=== PATIENT | male | born 1990 | race Caucasian/White ===

== ENCOUNTER 2016-11-08 09:28 | Emergency (ER) | payer OTHER ==
[2016-11-08 09:40] VITALS: RESP 16
--- NOTE | 2016-11-08 09:47 | EDPHY ---
H & P Stated Complaint: payton intermittent last ffew days(hasn't tried any otc meds) HPI/ROS: CHIEF COMPLAINT: Headache, vision changes HISTORY OF PRESENT ILLNESS: The patient is a healthy 26 y/o male arriving with his friend complaining of now resolved vision changes on Monday, 2 days ago, and a headache onset yesterday. While walking around the [employer] on Monday, he developed acute difficulty focusing his vision. He describes a white spot appearing in both eyes and difficulty seeing. This lasted for at least 5 minutes and was not associated with lightning flashes, headache, or noticeable difficulty reading. After sitting down for somewhere between 5-20 minutes, his vision completely returned to normal and he felt okay for the rest of the day. He woke up Monday with a dull right parietal headache that lasted throughout the day. This morning the headache returned so he went to urgent care for evaluation and was referred here. He has not taken anything for his headache and reports it has improved to a 4/10 in severity. He's had no further change in his vision or other neurologic symptoms. He denies fever, photophobia, phonophobia, dizziness, neck pain, vomiting, weakness, paresthesias, balance issues, confusion, chest pain, abdominal pain, dyspnea, recent illness, recent trauma. He does mention some mild mid back soreness. He has no history of migraines or headaches. He is eating and drinking normally. REVIEW OF SYSTEMS: A ten point review of systems was performed and is negative with the exception of the items mentioned in the HPI. Past medical history: Denies Past surgical history: Left foot surgery to repair fracture Family history: No neurologic diseases Social history: Nonsmoker. Drinks a "fair amount" of alcohol - 1 drink/night. Friend at bedside. Employed as a software database architect. From [place], [place]. No local PCP. General Appearance: Alert. Vital signs reviewed. Blood pressure 126/84. Eyes: Pupils equal and round, no conjunctival injection, no discharge. Anicteric. ENT, Mouth: Mucous membranes are moist, no oropharyngeal erythema or edema. Neck: No lymphadenopathy, supple. Respiratory: Lungs are clear to auscultation; no wheezes, rales, or rhonchi. Cardiovascular: Regular rate and rhythm; no murmur, rub, or gallop. Gastrointestinal: Abdomen is soft and nontender, no masses or organomegaly, bowel sounds normal. Skin: Warm and dry, no rashes on exposed skin, normal color. Back: Nontender to palpation over the thoracolumbar spine. No CVAT. Extremities: No lower extremity edema, no calf tenderness or swelling. Neurological: Alert and oriented. Moving all four extremities easily and equally. Cranial nerves II through XII are examined and are intact (visual acuity not tested). Strength is 5 over 5 bilaterally with testing of all major motor groups. Sensation is intact to light touch over all 4 extremities. Deep tendon reflexes are 2+ in the biceps and knees bilaterally. Gait is normal. [id number] is performed accurately. No truncal ataxia. Psychiatric: Normal affect. - Personal History Current Tetanus/Diphtheria Vaccine: Yes - Medical/Surgical History Hx Asthma: No Hx Chronic Respiratory Disease: No Hx Diabetes: No Hx Cardiac Disease: No Hx Renal Disease: No Hx Cirrhosis: No Hx Alcoholism: No Hx HIV/AIDS: No Hx Splenectomy or Spleen Trauma: No Other PMH: denies - Social History Smoking Status: Never smoked Constitutional: Initial Vital Signs Temperature (C) 36.5 C 11/08/16 09:37 Heart Rate 66 11/08/16 09:37 Respiratory Rate 16 11/08/16 09:37 Blood Pressure 126/84 H 11/08/16 09:37 O2 Sat (%) 98 11/08/16 09:37 O2 Delivery Mode Room Air Allergies/Adverse Reactions: amoxicillin Allergy (Verified 11/08/16 09:36) azithromycin Allergy (Verified 11/08/16 09:37) cefaclor [From Ceclor] Allergy (Verified 11/08/16 09:37) Home Medications: Medication Instructions Recorded NK [No Known Home Meds] 11/08/16 Medical Decision Making ED Course/Re-evaluation: This is a healthy 26 y/o male who presents with a 36-hour history of a dull right parietal headache and a brief preceding vision change about 48 hours ago that resolved spontaneously. He has no history of migraines. His neurologic exam is completely normal and he has had no further neurologic symptoms since the vision changes. I discussed options for imaging at length with the patient. We mutually decided to avoid CT imaging at this time and treat symptoms for now. He wants to try PO medication. 1 tab PO Excedrin administered. Onset of PAYTON not acute, PAYTON not worse of his life--historical information not suggestive of subarachnoid hemorrhage. No neck pain--doubt vascular thrombosis. No signs/sx of infection--meningitis unlikely. Portions of the early history suggest ocular migraine. His current headache does not have migraine features. Nothing that suggest cluster headache. Likely a tension-type headache. 1135: Reassessed patient. His headache has improved, but not resolved completely after Excedrin. He feels ready to go home. I've advised him to follow up with a PCP and use OTC headache medication as needed for symptoms. Strict return precautions given. He is comfortable with plan for discharge. - Data Points Medications Given: Discontinued Medications Acetaminophen/Aspirin/Caffeine (Excedrin Tablet) 1 each PO EDNOW ONE Stop: 11/08/16 10:15 Last Admin: 11/08/16 10:50 Dose: 1 each Departure - Departure Disposition: Home, Routine, Self-Care Clinical Impression: Headache Qualifiers: Headache type: unspecified Headache chronicity pattern: acute headache Intractability: not intractable Qualified Code(s): R51 - Headache Condition: Good Instructions: Ocular Migraine (ED), General Headache (ED) Additional Instructions: 1. Take [id number] medications such as Excedrin (contains acetaminophen) and ibuprofen as directed on the packaging as needed for headache over the next few days. 2. Increase fluid intake. 3. Follow up with a primary care provider to establish care. You've been referred to Dr. Awan locally. 4. Return to the ED for severe headache, confusion, fever, vision changes, weakness or numbness on one side of your body, difficulty with speech, or other worsening of condition. Adult Pain & Fever Control: We recommend Acetaminophen (Tylenol) and Ibuprofen (Motrin,Advil) for pain and fever control. When fever is high or pain severe, both drugs can be used at the same time, but at different intervals. Please note the time differences. Your dose is: Acetaminophen 650mg every 4 to 6 hours Ibuprofen 600mg every 6-8 hours with food Note: do not take Acetaminophen with Hydrocodone (Vicodin, Lortab) or Oxycodone (Percocet). These medications also contain Acetaminophen. No more than 3000mg of Acetaminophen should be taken in 24 hours (for an adult). Referrals: Myriam Awan MD [[facility] Primary Care Provider] - As per Instructions Report Scribed for: Lillian St Report Scribed by: Zuly Beaver Date of Report: 11/08/16 Time of Report: 10:07 Physician Review and Approval Statement: 11/08/16 09:47 Portions of this note were transcribed by the paramedical aide. I, Dr. Lillian St, personally performed the history, physical exam, and medical decision- making; and confirmed the accuracy of the information in the transcribed note.
[2016-11-08] MEDS ORDERED: ACETAMINOPHEN/ASA/CAFFEINE 1 EACH TAB PO ONE (10:14)
[2016-11-08 11:55] VITALS: BP 125/76; PULSE 81; TEMP 98.2; O2SAT 96
== END 2016-11-08 11:51 | disposition home or self-care (01) ==
DX: R51 Headache (principal)